=== PATIENT | male | born 1970 | race Caucasian/White ===

== ENCOUNTER 2023-11-25 18:05 | Emergency (ER) | payer OTHER, SELFPAY ==
[2023-11-25] VITALS (16 sets, daily range): BP systolic 168–242; BP diastolic 96–158; BMI 30.5
[2023-11-25 19:09] LABS: ALT (SGPT) 26 U/L (0-50); AST (SGOT) 38 U/L (17-59); Albumin 4.6 g/dl (3.5-5.0); Alkaline Phosphatase 115 U/L (38-126); Blood Urea Nitrogen 16 mg/dl (9-20); Calcium 9.3 mg/dl (8.4-10.2); Carbon Dioxide 27 mmol/L (22-30); Chloride 100 mmol/L (98-107); Estimated Creatinine Clearance 107 ml/min; Glucose 156 mg/dl (70-99); Potassium 3.6 mmol/L (3.5-5.1); Sodium 134 mmol/L (135-145); Total Bilirubin 1.2 mg/dl (0.2-1.3); Total Protein 7.8 g/dl (6.3-8.2); eGFR > 60.00
[2023-11-25 19:45] LABS: % Basophils 0.9 % (0-2); % Eosinophils 0.5 % (0-6); % Immature Granulocytes 0.4 % (0-0.5); % Lymphocytes 29.3 % (20.5-51.1); % Neutrophils 59.9 % (42.2-75.2); Absolute Basophils 0.1 10^3/uL (0-0.2); Absolute Lymphocytes 2.3 10^3/uL (1.2-3.4); Absolute Monocytes 0.7 10^3/uL (0.1-0.6); Absolute Neutrophils 4.7 10^3/uL (1.4-6.5); Hemoglobin 17.4 g/dL (13.0-18.0); Mean Corp Hgb Conc. 38.7 g/dL (33.0-37.0); Mean Corpuscular Hgb 32.8 pg (27.0-31.0); Mean Corpuscular Volume 84.7 fL (80.0-94.0); Mean Platelet Volume 10.5 fL (7.4-10.4); Nucleated Red Blood Cells % 0 % (-); Platelet Count 167 10^3/uL (130-400); Red Blood Cell Count 5.31 10^6/uL (4.70-6.10); Red Cell Dist. Width 12.9 % (11.5-14.5); White Blood Cell Count 7.9 10^3/uL (4.8-10.8)
[2023-11-25] MEDS: TRANDATE 10 MG IV ×2 (19:56→20:40)
[2023-11-25] MEDS: TRANDATE 200 MG PO (20:49)
--- NOTE | 2023-11-25 22:53 | ED.GENMED ---
History of Present Illness
General
Chief Complaint: Blood Pressure Problem
Source: patient
Exam Limitations: none
Time Seen by Provider: 11/25/23 19:06
Travel History
Have you had any contact with someone who has COVID-19?: No
Do you have any symptoms of coronavirus? Fever > 100 degrees, chills, cough, shortness of breath, sore throat, loss of taste or smell, muscle aches, or headache?: No
History of Present Illness
History of Present Illness:
This a 53-year-old male who was sent from urgent care due to concerns about his blood pressure. The patient injured his left shoulder. Patient states he was putting his ladder up on his truck when he injured his shoulder. He did not fall. He
presents a radiology report that states no fractures but question mild subluxation at the left shoulder. Patient reports he is able to range it but at certain extremes of range of motion he has pain. He states he used to be treated for
hypertension but stopped taking his medications. He states he was frustrated with getting follow-up and refilling his medication. Patient notes he has not had his pressure checked in some time. He denies chest pain, headache, vision changes.
Past History
Past History
ED Past Medical History: HTN
ED Past Surgical History: Tonsilectomy
Phy Exam
Physical Exam
Physical Exam:
CONSTITUTIONAL Patient alert and oriented to person, place and time. Well-appearing. Vital signs reviewed.
HEAD atraumatic, normocephalic.
EYES eyelids normal to inspection, Pupils equally round and reactive to light, Extraocular muscles intact, Conjunctiva normal, Sclera normal.
NECK normal range of motion, Trachea midline, no jugular venous distention.
RESPIRATORY CHEST No respiratory distress noted, Chest expansion equal, Bilateral breath sounds clear.
CARDIOVASCULAR regular rate and rhythm, Heart sounds normal.
ABDOMEN abdomen nontender, Bowel sounds normal. No distention.
BACK normal inspection, no obvious deformities
UPPER EXTREMITY Motor strength normal, no cyanosis, no edema. Does not have an empty glenoid. No clavicular tenderness. No pain with internal or external rotation passively. Able to actively internal
Rotate. Mild pain with extreme abduction. Normal shoulder flexion
LOWER EXTREMITY range of motion normal, Motor strength normal, no cyanosis, no edema.
NEURO Speech normal, No focal motor deficits, Hondo coma scale 15, Memory normal, Cranial Nerves intact to screening exam.
SKIN skin warm, dry, and normal in color.
PSYCHIATRIC patient oriented to person place and time, Normal affect.
Course
Orders/Labs/Results
Orders:
Orders
11/25/23 18:47
CMP [Comprehensive Metabolic Panel] Urgent
Complete Blood Count/With Diff Urgent
11/25/23 19:30
Labetalol HCl [Trandate] 10 mg IV NOW STA
11/25/23 20:36
Labetalol HCl [Trandate] 10 mg IV NOW STA
11/25/23 20:40
Labetalol [Trandate] 200 mg PO NOW STA
11/25/23 22:54
Sucralfate Suspension [Carafate Suspension] 1 gm PO NOW STA
Abnormal Lab Results
11/25/23
18:47
MCH 32.8 H pg
(27.0-31.0)
MCHC 38.7 H g/dL
(33.0-37.0)
MPV 10.5 H fL
(7.4-10.4)
Absolute Monos (auto) 0.7 H 10^3/uL
(0.1-0.6)
Sodium 134 L mmol/L
(135-145)
Glucose 156 H mg/dl
(70-99)
11/25/23 18:47
11/25/23 18:47
Vital Signs
Initial and Last Documented VS:
Initial Vital Signs
Temp Pulse Resp BP Pulse Ox
98.5 F 108 16 227/158 99
11/25/23 18:07 11/25/23 18:07 11/25/23 18:07 11/25/23 18:07 11/25/23 18:07
Last Documented Vital Signs
Temp Pulse Resp BP Pulse Ox
98.5 F 83 14 179/104 97
11/25/23 18:07 11/25/23 22:45 11/25/23 22:45 11/25/23 22:45 11/25/23 22:30
MDM/Problems Addressed
MDM/Problems Addressed:
Uncontrolled hypertension, shoulder injury
Acute Exacerbation and/or Progression of Chronic Illness: HTN
*Radiology
Radiology exam reviewed: preliminary read by ED provider (No fracture noted. No dislocation noted)
*Pulse Oximetry
Patient hypoxic: no
*Manufacturing Maintenance Mechanic Interpretation
Rate: normal
Interpretation: normal
Rhythm: sinus
*Critical Care Note
Total Time (30-74mins, 75-104mins- exclusive of procedures): 30 minutes
Data Reviewed
Source: patient and significant other
Prescriptions/Medications Considered But Not Given:
Consider calcium channel blockers but patient responded well to labetalol
Patient Management
Escalation/DeEscalation of care consider admission/obs:
Considered admission but patient does not want admission and prefers outpatient management. Blood pressure did improve significantly. Blood pressure last evaluated by me was 176/95. I think is reasonable for outpatient management. I expressed
the significance and importance of controlling hypertension. Patient and spouse agree. Patient will follow-up with PCP. Labetalol twice daily for now
ED Attending Note
-
Portions of this chart may have been created with voice recognition software.� Occasional wrong word or��sound alike� substitutions may have occurred due to the inherent limitations of voice recognition software.
Discharge Plan
Departure
Patient Disposition: Home (Routine Discharge)
Date of Disposition: 11/25/23
Time of Disposition: 22:54
Patient with high blood pressure during this ER visit?: Yes
Discharge Problem:
Injury of shoulder, left, Uncontrolled hypertension
Instructions: High Blood Pressure (DC), Shoulder Sprain ED, BLOOD PRESSURE
Prescriptions:
New
labetalol 200 mg tablet
200 mg PO BID Qty: 60 0RF
Referrals:
Felipe Gao MD [Active] -
Seven Cain DO [Family Provider] -
Activity Restrictions/Additional Instructions:
Please see orthopedics in the next 1 week for follow-up and reevaluation as an MRI may be necessary to further evaluate your shoulder injury. Please see your doctor in the next 3 days for follow-up on your blood pressure. Your blood pressure was
elevated while in the Emergency Department, please have your doctor re-evaluate it in the next 48 hours as untreated hypertension may lead to serious complications.
Return immediately for chest pain, headache, vision change, motor weakness, numbness, tingling or any other concerns.
Interventions
Interventions:
*Risk Screen - Suicide Last Done: 11/25/23 18:07
*General Assessment Last Done: 11/25/23 19:15
*Neglect/Abuse Screening Last Done: 11/25/23 18:07
ED- Fall Risk Assessment Last Done: 11/25/23 23:00
*ED COVID-19 Vaccine History Last Done: 11/25/23 18:07
*Nursing Disposition Last Done: 11/25/23 23:00
ED- Cardiac Assessment Last Done: 11/25/23 19:15
ED- Neurological Assessment Last Done: 11/25/23 19:15
ED- Pulmonary Assessment Last Done: 11/25/23 19:15
Discharge Date and Time
Discharge Date/Time: 11/25/23 23:01
== END 2023-11-25 23:01 | disposition home or self-care (01) ==
LOC: EMR 18:05
PROVIDERS: Emergency Medicine; EMERGENCY PHYSICIAN Emergency Medicine; FAMILY PHYSICIAN Family Medicine
DX: S49.92XA Unspecified injury of left shoulder and upper arm, initial encounter (principal); I10 Essential (primary) hypertension; X58.XXXA Exposure to other specified factors, initial encounter
CPT/HCPCS: 99283; 96374; 96376; 80053; 85025